=== PATIENT | female | born 1965 | race Caucasian/White ===

== ENCOUNTER 2016-05-20 14:44 | Emergency (ER) | payer OTHER ==
[~2016-05-20] VITALS: Ht 167.6 cm; Wt 74.0 kg
[~2016-05-20 14:44] MED LIST: CYM/30 PO; DIFL500T PO; Enbrel SQ; FERR325T62 PO; FLAX SEED OIL PO; LINA1CAP2 PO; LYR50 PO; NF656 TD; OMEP20TA14 PO; POTA99TA PO; PRED-441 PO; TRAM-10 PO
[2016-05-20 14:47] VITALS: TEMP 37; Ht 167.6 cm; Wt 74.0 kg
[2016-05-20] MEDS ORDERED: ETAN50IN2 SQ (15:06)
[2016-05-20] MEDS ORDERED: OXYCODONE HCL IR 5 MG TAB (IMMEDIATE RELEASE) PO STA (15:13)
--- NOTE | 2016-05-20 15:23 | EMERGENCY ROOM VISIT NOTE ---
History First contact with patient: 15:00 Chief Complaint: FALL Stated Complaint: FELL DOWN THE STAIRS History of Present Illness The patient is a 51 year old female who presents to the Emergency Room via private vehicle with complaints of "felt on the stairs". The patient states that Thursday night/Thursday morning at 1 AM she was at the top of a wooden flight of steps in her home, when she lost her footing and fell down the steps. She denies loss of consciousness, dizziness or lightheadedness. She states that yesterday she felt sore and went to the [facility] with a x-ray of her right clavicle found to be fractured, gave her a sling and she left. She notes pain yesterday but now she feels everything hurts. She is unsure if she struck her head. Her tetanus is up-to-date. There is a small cut over the dorsal aspect of the right middle finger. She notes that she has a headache, on the right side of her head, bilateral neck pain, bilateral clavicle pain, upper back pain between the shoulder blades and pain near the superior sternum at the location of the clavicles. She has abdominal pain, and blood in her stool or urine since the event. She also has pain in the left side of the hip. She rates the overall pain as a 9/10. Review of Systems A complete 6-point Review of Systems was discussed with the patient, with pertinent positives and negatives listed in the History of Present Illness. All remaining Review of Systems questions can be considered negative unless otherwise specified. Past Medical/Surgical History Medical Problems: (1) Animal bite (2) Animal bite (3) Multiple lacerations (4) Multiple orthopedic surgeries (5) Psoriatic arthritis (6) Rabies, need for prophylactic vaccination against (7) Rabies, need for prophylactic vaccination against (8) Rabies, need for prophylactic vaccination against Social History Smoking Status: Never Smoker Alcohol Use: occasionally Marital Status: single Occupation Status: employed Current/Historical Medications Scheduled Etanercept (Enbrel), 50 MG SQ WK Potassium (Potassium), 99 MG PO DAILY Pregabalin (Lyrica), 50 MG PO TID Scheduled PRN Lidocaine (Lidoderm Patch 5%), 1 PATCH TD HS PRN for PRN Omeprazole Magnesium (Prilosec Otc), 20 MG PO DAILY PRN for GI Upset Oxycodone/Acetaminophen 5MG/325MG (Percocet 5MG/325MG), 1 TAB PO Q4H PRN for Pain Prednisone (Cindy), 5 MG PO DAILY PRN for PRN Tramadol (Ultram), 50 MG PO 5XD PRN for Pain Miscellaneous Medications [Bl Flax Seed Oil], 1,000 MG PO Allergies Uncoded Allergies: RAO-2 INHIBITORS (Allergy, Unknown, "[facility]", 05/20/16) Physical Exam Vital Signs Date Time Temp Pulse Resp B/P Pulse Ox O2 Delivery O2 Flow Rate FiO2 05/20/16 18:05 66 20 136/80 98 05/20/16 14:47 37.0 67 18 165/102 97 Room Air Physical Exam VITAL SIGNS - Vital signs and nursing notes were reviewed. Patient is afebrile , she is hypertensive at 165 or 102, she is not tachycardic and saturating well on room air at 97%. GENERAL -51-year-old female appearing her stated age. Communicates well with provider and answers questions appropriately. SKIN - Gross examination of the entire body surface demonstrates a small lacerations to the dorsal aspect of the right third digit. These lacerations will not require repair. There is no ecchymosis noted over the body. HEAD - Normocephalic, Atraumatic. No Alvarado's Sign or Raccoon's Eyes. No depressed skull fractures palpable. EYES - PERRL with EOMI bilaterally. Without subconjunctival hemorrhage. Palpebral conjunctiva pink and moist with no injection. EARS - No deformities of external structures noted on gross examination bilaterally. No hemotympanum present. No tympanic perforation noted. Handle of malleus, umbo, cone of light, pars tensa/flaccid all easily visualized. NOSE - Midline and without cyanosis. No epistaxis or clear watery discharge noted. Septum midline without deviation. No septal hematoma noted. No overlying ecchymosis noted. MOUTH/OROPHARYNX - Without perioral cyanosis. Tongue midline with equal elevation of palate bilaterally. No blood noted in the oropharynx. No tonsillar hypertrophy, erythema, or exudates noted. No dental fractures noted. NECK - Cervical collar promptly in place. There is tenderness to palpation over the cervical spinous processes. No cervical paraspinal muscle tenderness noted. LUNGS - Chest wall symmetric without accessory muscle use, intercostals retractions, or central cyanosis. No flail chest or depressed fractures noted. No paradoxical chest wall movements noted. There is tenderness to palpation across the superior anterior and superior posterior chest [place] overlying the left paraspinous musculature. Normal vesicular breath sounds CTA B/L. No wheezes, rales, or rhonchi appreciated. CARDIAC - RRR with S1/S2. No murmur, rubs, or gallops appreciated. ABDOMEN - Abdominal contour and without pulsations or visible masses. BS normoactive all four quadrants. No rebound tenderness or guarding noted. Negative Bhanu's or Dahl Coulter's Signs. No tenderness, palpable masses, hepatosplenomegaly, or ascites noted. EXTREMITIES - No gross deformities noted of the extremities. No tenderness to palpation of the upper or lower extremities. There is slight tenderness to palpation overlying the left hip. Patient is able to axial load without difficulty. +3/5 radial and dorsalis pedis pulses palpated throughout. Full range of motion of the extremities actively. +5/5 strength noted in UE/LE bilaterally. NEUROLOGIC - Cranial nerves II through XII grossly intact. Sensory intact to light touch throughout. PSYCH - A&Ox3 and cooperates fully with examiner. Pt is very pleasant and interacts well with examiner. Medical Decision & Procedures ER Provider Diagnostic Interpretation: CERVICAL SPINE CT CT DOSE: 976.74 mGy.cm HISTORY: Fell, neck tenderness TECHNIQUE: Multiaxial CT images of the cervical spine were performed and reformatted in the sagittal and coronal plane without the use of contrast. COMPARISON: None. FINDINGS: No fractures. No subluxation. Prevertebral soft tissues and the C1-C2 interval are intact. No pneumothorax. Mild disc space narrowing at C5-C6. IMPRESSION: No fractures within the cervical spine. Electronically signed by: Ferdinand Marquez M.D. 05/20/2016 4:06 PM Dictated Date/Time: 05/20/2016 4:02 PM CHEST 2 VIEWS ROUTINE CLINICAL HISTORY: Bilateral clavicle pain and sternum pain pain COMPARISON STUDY: No previous studies for comparison. FINDINGS: The bones soft tissues and hemidiaphragms are normal. The cardiomediastinal silhouette is normal. The lungs are clear. The pulmonary vasculature is normal. IMPRESSION: Negative chest. Electronically signed by: Grupo Khan M.D. 05/20/2016 4:59 PM Dictated Date/Time: 05/20/2016 4:59 PM RIGHT CLAVICLE CLINICAL HISTORY: Bilateral clavicle pain and sternum pain Right COMPARISON STUDY: None. FINDINGS: No fractures within the clavicle. Tiny cortical lucency at the distal common and likely due to overlap of bony structures. No definite fractures identified. The AC joint is well aligned. IMPRESSION: No fractures within the right clavicle. Electronically signed by: Ferdinand Marquez M.D. 05/20/2016 5:07 PM Dictated Date/Time: 05/20/2016 5:04 PM LEFT CLAVICLE CLINICAL HISTORY: Bilateral clavicle pain and sternum pain trauma. Pain. COMPARISON: None. DISCUSSION: The bones and joint spaces appear intact. There is no evidence of fracture, dislocation or bony disease. There is no evidence for soft tissue swelling. IMPRESSION: Negative study. Electronically signed by: Grupo Khan M.D. 05/20/2016 5:07 PM Dictated Date/Time: 05/20/2016 5:[address] HEAD WITHOUT CONTRAST (CT) CLINICAL HISTORY: Headache status post head trauma. COMPARISON STUDY: No previous studies for comparison. TECHNIQUE: Axial CT of the brain is performed from the vertex to the skull base. IV contrast was not administered for this examination. CT DOSE: FINDINGS: No intra or extra-axial mass lesions are visualized. There is no CT evidence of acute cortical infarction. There is no evidence of midline shift. There is no acute hemorrhage. No calvarial fractures are visualized. There are minimal white matter hypodensities likely on a small vessel basis. There is no evidence of pathologic ventricular dilatation. There is no evidence of acute sinusitis IMPRESSION: No acute intracranial findings Electronically signed by: Leno Nails M.D. 05/20/2016 3:59 PM Dictated Date/Time: 05/20/2016 3:53 PM LEFT PELVIS/UNILATERAL HIP 2-3VIEWS CLINICAL HISTORY: Left hip pain s/p fall trauma. Pain. COMPARISON: None. DISCUSSION: The bones and joint spaces appear intact. There is no evidence of fracture, dislocation or bony disease. There is no evidence for soft tissue swelling. IMPRESSION: Negative study. Electronically signed by: Grupo Khan M.D. 05/20/2016 5:03 PM Dictated Date/Time: 05/20/2016 5:03 PM LUMBAR SPINE 5 VIEWS HISTORY: Pain Back pain COMPARISON: None. FINDINGS: There is no fracture. No subluxation. Considerable degenerative disc change from L3 through L5. No evidence for compression deformity. Posterior elements appear intact. IMPRESSION: Degenerative change. No acute bony abnormality Electronically signed by: Grupo Khan M.D. 05/20/2016 5:04 PM Dictated Date/Time: 05/20/2016 5:03 PM STERNUM MIN 2 VIEWS CLINICAL HISTORY: Bilateral clavicle pain and sternum pain trauma. Pain. COMPARISON STUDY: None FINDINGS: Negative study IMPRESSION: Negative study Electronically signed by: Grupo Khan M.D. 05/20/2016 5:06 PM Dictated Date/Time: 05/20/2016 5:05 PM THORACIC SPINE 3 VIEWS HISTORY: Pain Thoracic back pain COMPARISON: None. FINDINGS: There is no fracture. No subluxation. Moderate degenerative disc change throughout IMPRESSION: Moderate degenerative change. No acute bony abnormality. Electronically signed by: Grupo Khan M.D. 05/20/2016 5:04 PM Dictated Date/Time: 05/20/2016 5:04 PM Medications Administered Medications (Trade) Dose Ordered Sig/Oracio Route Start Time Stop Time Status Last Admin Dose Admin Oxycodone HCl (Roxicodone Immediate Rel Tab) 5 mg NOW STAT PO 05/20/16 15:13 05/20/16 15:18 DC 05/20/16 15:33 5 MG Medical Decision Patient was seen and evaluated as above. After obtaining a thorough history and physical examination the above workup was obtained. She was given 1 OxyIR for her pain. There was concern over her clavicle fracture, pneumothorax secondary to clavicle fracture, and C-spine fracture. C-collar was applied stat. Results of imaging as above. I agree with radiologist findings. No acute fractures. I did thoroughly discuss the findings with the patient, to include the incidental findings. She was instructed to follow-up with orthopedic group as soon as possible regarding her injuries, but I do not suspect any acute fracture. She may be experiencing a mild concussion. She is to follow-up with her family doctor or orthopedic regarding today's visit. I do believe she is stable for discharge, and she notes that the OxyIR helped tremendously with her pain. She does appear to be feeling much better and looks well. She was accompanied by her father. She will be given a short-term prescription for Percocet, she notes that she will cut these in half. She was informed to not take any Tylenol with these. She was educated upon worrisome symptoms which to return, had questions answered prior to discharge and was discharged home in good condition. I suspect the patient is likely experiencing contusion of many sites, but no fractures or emergent findings. In the evaluation did review this patient the following differential diagnoses were entertained: Acute intracranial abnormality, concussion, C-spine fracture, clavicle fracture, pneumothorax, lumbar fracture, hip fracture, among others. [place] Drug Monitoring Program Search Results: patient reviewed within database, no issues identified Impression Primary Impression: Fall Additional Impression: Contusion of multiple sites Departure Information Dispostion Home / Self-Care Condition GOOD Prescriptions Oxycodone/Acetaminophen 5MG/325MG (PERCOCET 5MG/325MG) Tab 1 TAB PO Q4H Y for Pain, #15 TAB For Initial Treatment Prov: Ovidio Rice PA-C 05/20/16 Referrals Fredi Day D.OZenon (PCP) Patient Instructions My [facility] Additional Instructions You have been treated in the Emergency Department for a Closed Head Injury.You have received pain medicine in the emergency department which impairs your ability to operate a vehicle. It is illegal for you to drive after receiving these medicines. CT Scan of your head/brain demonstrated no acute bleeding. Please discuss the other findings with your family doctor as we discussed. This does not completely rule out the risk for future damage to the brain. You have been prescribed Percocet to be used for pain control. This is a narcotic medication. You cannot drive or consume alcohol while on this medicine. This medicine should only be used for pain that cannot be controlled with [id number] pain medicines. For pain control, you can use the following [id number] medicines (if >12 yo): PLEASE DO NOT CONSUME TYLENOL WHILE ON THE PERCOCET, as it already has tylenol in it. You should relax in a quiet, dark place for the rest of the day. Avoid any possible triggers including: cigarette smoke, caffeine, nicotine, chocolate, wine, beer, loud noises or music, or bright lights. You should schedule a follow-up appointment in 2-3 days with your Primary Care Provider, and orthopedic group for further evaluation and management of your injuries. Return to the Emergency Department if your current symptoms worsen despite treatment course outlined above, or if you develop any of the following symptoms : intractable pain despite aforementioned treatment course, visual disturbances , loss of vision, unilateral weakness or facial drooping, slurring of speech, loss of coordination, or loss of consciousness. Please return to the emergency department with any new/concerning symptoms. Problem Qualifiers
--- NOTE | 2016-05-20 16:01 | DIAGNOSTIC IMAGING REPORT ---
CT HEAD WITHOUT CONTRAST (CT) CLINICAL HISTORY: Headache status post head trauma. COMPARISON STUDY: No previous studies for comparison. TECHNIQUE: Axial CT of the brain is performed from the vertex to the skull base. IV contrast was not administered for this examination. CT DOSE: FINDINGS: No intra or extra-axial mass lesions are visualized. There is no CT evidence of acute cortical infarction. There is no evidence of midline shift. There is no acute hemorrhage. No calvarial fractures are visualized. There are minimal white matter hypodensities likely on a small vessel basis. There is no evidence of pathologic ventricular dilatation. There is no evidence of acute sinusitis IMPRESSION: No acute intracranial findings Electronically signed by: Leno Nails M.D. 05/20/2016 3:59 PM Dictated Date/Time: 05/20/2016 3:53 PM
--- NOTE | 2016-05-20 16:08 | DIAGNOSTIC IMAGING REPORT ---
CERVICAL SPINE CT CT DOSE: 976.74 mGy.cm HISTORY: Fell, neck tenderness TECHNIQUE: Multiaxial CT images of the cervical spine were performed and reformatted in the sagittal and coronal plane without the use of contrast. COMPARISON: None. FINDINGS: No fractures. No subluxation. Prevertebral soft tissues and the C1-C2 interval are intact. No pneumothorax. Mild disc space narrowing at C5-C6. IMPRESSION: No fractures within the cervical spine. Electronically signed by: Ferdinand Marquez M.D. 05/20/2016 4:06 PM Dictated Date/Time: 05/20/2016 4:02 PM
--- NOTE | 2016-05-20 17:01 | DIAGNOSTIC IMAGING REPORT ---
CHEST 2 VIEWS ROUTINE CLINICAL HISTORY: Bilateral clavicle pain and sternum pain pain COMPARISON STUDY: No previous studies for comparison. FINDINGS: The bones soft tissues and hemidiaphragms are normal. The cardiomediastinal silhouette is normal. The lungs are clear. The pulmonary vasculature is normal. IMPRESSION: Negative chest. Electronically signed by: Grupo Khan M.D. 05/20/2016 4:59 PM Dictated Date/Time: 05/20/2016 4:59 PM
--- NOTE | 2016-05-20 17:04 | DIAGNOSTIC IMAGING REPORT ---
LEFT PELVIS/UNILATERAL HIP 2-3VIEWS CLINICAL HISTORY: Left hip pain s/p fall trauma. Pain. COMPARISON: None. DISCUSSION: The bones and joint spaces appear intact. There is no evidence of fracture, dislocation or bony disease. There is no evidence for soft tissue swelling. IMPRESSION: Negative study. Electronically signed by: Grupo Khan M.D. 05/20/2016 5:03 PM Dictated Date/Time: 05/20/2016 5:03 PM
--- NOTE | 2016-05-20 17:05 | DIAGNOSTIC IMAGING REPORT ---
LUMBAR SPINE 5 VIEWS HISTORY: Pain Back pain COMPARISON: None. FINDINGS: There is no fracture. No subluxation. Considerable degenerative disc change from L3 through L5. No evidence for compression deformity. Posterior elements appear intact. IMPRESSION: Degenerative change. No acute bony abnormality Electronically signed by: Grupo Khan M.D. 05/20/2016 5:04 PM Dictated Date/Time: 05/20/2016 5:03 PM
--- NOTE | 2016-05-20 17:06 | DIAGNOSTIC IMAGING REPORT ---
THORACIC SPINE 3 VIEWS HISTORY: Pain Thoracic back pain COMPARISON: None. FINDINGS: There is no fracture. No subluxation. Moderate degenerative disc change throughout IMPRESSION: Moderate degenerative change. No acute bony abnormality. Electronically signed by: Grupo Khan M.D. 05/20/2016 5:04 PM Dictated Date/Time: 05/20/2016 5:04 PM
--- NOTE | 2016-05-20 17:07 | DIAGNOSTIC IMAGING REPORT ---
STERNUM MIN 2 VIEWS CLINICAL HISTORY: Bilateral clavicle pain and sternum pain trauma. Pain. COMPARISON STUDY: None FINDINGS: Negative study IMPRESSION: Negative study Electronically signed by: Grupo Khan M.D. 05/20/2016 5:06 PM Dictated Date/Time: 05/20/2016 5:05 PM
--- NOTE | 2016-05-20 17:08 | DIAGNOSTIC IMAGING REPORT ---
LEFT CLAVICLE CLINICAL HISTORY: Bilateral clavicle pain and sternum pain trauma. Pain. COMPARISON: None. DISCUSSION: The bones and joint spaces appear intact. There is no evidence of fracture, dislocation or bony disease. There is no evidence for soft tissue swelling. IMPRESSION: Negative study. Electronically signed by: Grupo Khan M.D. 05/20/2016 5:07 PM Dictated Date/Time: 05/20/2016 5:07 PM
--- NOTE | 2016-05-20 17:08 | DIAGNOSTIC IMAGING REPORT ---
RIGHT CLAVICLE CLINICAL HISTORY: Bilateral clavicle pain and sternum pain Right COMPARISON STUDY: None. FINDINGS: No fractures within the clavicle. Tiny cortical lucency at the distal common and likely due to overlap of bony structures. No definite fractures identified. The AC joint is well aligned. IMPRESSION: No fractures within the right clavicle. Electronically signed by: Ferdinand Marquez M.D. 05/20/2016 5:07 PM Dictated Date/Time: 05/20/2016 5:04 PM
[2016-05-20] MEDS ORDERED: OXYC-57 PO (17:42)
[2016-05-20 18:05] VITALS: BP 136/80; PULSE 66; O2SAT 98
== END 2016-05-20 18:06 | disposition home or self-care (01) ==
LOC: C.EDB 14:46 → C.EDD 18:06
DX: T14.8 Other injury of unspecified body region (principal); W10.9XXA Fall (on) (from) unspecified stairs and steps, initial encounter

== ENCOUNTER → 2016-11-06 | Outpatient (CLI) | payer OTHER ==
[~2016-11-06] MED LIST changes: -CYM/30 PO; -DIFL500T PO; +ETAN50IN2 SQ; -Enbrel SQ; -FERR325T62 PO; -LINA1CAP2 PO; +OXYC-57 PO
== END | disposition home or self-care (01) ==
LOC: C.PAPS 13:50
PROVIDERS: ATTEND Physician Assistant
DX: Z12.4 Encounter for screening for malignant neoplasm of cervix (principal)

== ENCOUNTER 2020-05-11 13:10 | Inpatient (IN) ==
[2020-05-11] MEDS ORDERED: ONDANSETRON INJ 2 MG/ML 2 ML VIAL IV STA (14:58)
[2020-05-11] MEDS ORDERED: HYDROmorphone INJ 0.5 MG/0.5 ML SYR IV PRN (14:58)
[2020-05-11] MEDS ORDERED: Heparin IV Adult Wt-Based Standard WITH Bolus Protocol IV STA (15:03)
[2020-05-11] MEDS ORDERED: HEPARIN SOD (PORCINE) 1000 UNIT/ML ONE (15:13)
[2020-05-11 15:30] LABS: Basophils # (auto) 0.01 K/uL (0-0.2); Basophils % (auto) 0.2 %; Eosinophils # (auto) 0.19 K/uL (0-0.5); Hematocrit (blood only) 37.5 % (37-47); Hemoglobin 12.8 g/dL (12.0-16.0); Immature Granulocytes # (auto) 0.01 K/uL (0.00-0.02); Immature Granulocytes % (auto) 0.2 %; Lymphocytes # (auto) 2.31 K/uL (1.2-3.4); Mean Corpuscular Hemoglobin 31.1 pg (25-34); Mean Corpuscular Hgb Conc 34.1 g/dL (32-36); Mean Platelet Volume 9.6 fL (7.4-10.4); Monocytes # (auto) 0.41 K/uL (0.11-0.59); Monocytes % (auto) 6.4 %; Neutrophils # (auto) 3.48 K/uL (1.4-6.5); Neutrophils % (auto) 54.2 %; Platelet Count 210 K/uL (130-400); RDW Coefficient of Variation 12.3 % (11.5-14.5); Red Blood Count 4.12 M/uL (4.2-5.4); White Blood Count 6.41 K/uL (4.8-10.8)
[2020-05-11 15:39] LABS: Partial Thromboplastin Time 25.4 Seconds (21.0-31.0); Prothrombin Time 10.4 Seconds (9.0-12.0)
[2020-05-11 15:56] LABS: Albumin Level 3.5 gm/dl (3.4-5.0); Blood Urea Nitrogen 14 mg/dl (7-18); Calcium 9.2 mg/dl (8.5-10.1); Carbon Dioxide 26 mmol/L (21-32); Chloride 108 mmol/L (98-107); Est GFR (African American) 91.3; Est GFR (Non-African American) 78.8; Glucose 88 mg/dl (70-99); Potassium 3.9 mmol/L (3.5-5.1); Sodium 141 mmol/L (136-145)
[2020-05-11 16:00] LABS: Alanine Aminotransferase 43 U/L (12-78); Albumin Globulin Ratio 0.9 (0.9-2); Alkaline Phosphatase 61 U/L (45-117); Aspartate Aminotransferase 23 U/L (15-37); Bilirubin,Total 0.5 mg/dl (0.2-1); Globulin 3.8 gm/dl (2.5-4.0); Total Protein 7.3 gm/dl (6.4-8.2); Troponin I < 0.015 ng/ml (0-0.045)
--- NOTE | 2020-05-11 16:05 | History & Physical Report ---
Date of Service May 11, 2020 Assessment & Plan (1) Bilateral pulmonary embolism: Pt is 55 y/o F with PMH asthma, psoriatic arthritis, fibromyalgia, GERD presented to ER for SOB and abnormal CT Chest. Pt was diagnosed with COVID19 on 04/22/2020 with symptoms starting on 04/16. Increased SOB and Vitals stable - no tachycardia or tachypnea and 94% on RA CTA CHEST: Multiple lobar and segmental pulmonary emboli, greater within the right lung. Provoked PE - COVID19, OCP use Monitor on tele Heparin IV started in ER and will continue Discussion with pt about oral anticoagulation, would be interested in noac Supplemental oxygen as needed Obtain doppler BLE to R/O DVT (2) Pneumonia due to COVID-19 virus: COVID 19 Pneumonia symptom onset 04/16/2020. Positive test on 04/22/2020. Was treated with Zithromax and prednisone taper on 05/08/2020 No leukocytosis Will continue prednisone taper. 15mg daily x 3 days followed by 10mg daily x 3 days then 5mg daily x 3 days Will finish oral zithromax Albuterol inhaler prn Procalcitonin and CRP added Pt greater than 21 days from symptom onset. will not require isolation (3) Psoriatic arthritis: Follows with rheumatology Dr Ramos On Inflectra infusion last dose 04/09/2020 Continue Tramadol prn (4) Fibromyalgia: Continue Lyrica DVT Prophylaxis On Heparin Drip as has PE upon admission Full Code as per discussion with pt Follows with Dr Fredi Day for routine care Pt was seen and care coordinated with Dr Yadav. See addendum History of Present Illness Chief Complaint: SOB, Abnormal CT CHEST Primary Care Provider: Fredi Day, Pt is 55 y/o F with PMH asthma, psoriatic arthritis, fibromyalgia, GERD presented to ER for SOB and abnormal CT Chest. Pt was diagnosed with COVID19 on 04/22/2020 with symptoms starting on 04/16. Had cough, SOB, myalgias, congestion, VELEZ, nausea, fatigue. Developed chest tightness and lungs hurting". Unable to fully inhale. Symptoms have not improved. Seen at urgent care on 05/08/2020 had unremarkable CXR and was started on Zithromax, prednisone taper and was instructed to use albuterol inhaler. 05/09/20 CBC without leukocytosis and had elevated D-dimer. Today had CTA chest and was positive for multiple lobar and segmental pulmonary emboli and was referred to ER. Has chronic pain but feels more fatigued than baseline. Denies fever/chills, diaphoresis, N/V/D, VELEZ, dizziness, syncope, vision changes, neck pain, hemoptysis, palpitations, abdominal pain, paresthesias, extremity weakness, extremity edema or erythema, rashes, urinary symptoms. Allergies Allergy/AdvReac Type Severity Reaction Status Date / Time RAO-2 INHIBITORS Allergy Unknown "MENTALLY Uncoded 05/11/20 15:37 HE[facility]ALLENGE" Home Medications Medication Instructions Recorded Confirmed Type lamotrigine 25 mg tablet 75 mg PO AMHS 11/25/18 05/11/20 History multivitamin with iron 1 tab PO DAILY 11/25/18 05/11/20 History albuterol sulfate 2 puff INHALATION QID PRN 05/11/20 05/11/20 History azithromycin [Zithromax Z-Reagan] 250 mg PO .DAILY UD 05/11/20 05/11/20 History infliximab-dyyb [Inflectra] 400 mg IV DIRECTED 05/11/20 05/11/20 History lamotrigine 50 mg PO .QAFTERNOON 05/11/20 05/11/20 History levocetirizine 5 mg PO DAILY PRN 05/11/20 05/11/20 History norethindrone-ethin estradiol 1 tab PO DAILY 05/11/20 05/11/20 History [Nortrel 35 (28)] potassium 75 mg PO DAILY 05/11/20 05/11/20 History prednisone 10 mg PO .TAPER UD 05/11/20 05/11/20 History pregabalin [Lyrica] 150 mg PO TID 05/11/20 05/11/20 History propranolol 10 mg PO BID PRN 05/11/20 05/11/20 History tramadol 50 mg PO Q6H PRN 05/11/20 05/11/20 History Past Med/Surg History Medical History (Updated 05/11/20 @ 16:56 by Darnell Robison MD) Fibromyalgia GERD (gastroesophageal reflux disease) Ovarian cyst Psoriatic arthritis Vulvar dystrophy Surgical History H/O colonoscopy H/O foot surgery H/O oral surgery H/O wrist surgery History of colposcopy Family History (Updated 05/18/19 @ 13:22 by Jovana Crow MD, FACOG) Father Prostate cancer Skin cancer Denies family history of Ovarian cancer Breast cancer Colorectal cancer Social History (Updated 05/11/20 @ 16:08 by Shruthi Ferreira PA-C) Smoking Status: Never smoker Second Hand Exposure: No; Do You Dip or Chew Tobacco: No; Tobacco Cessation Education Requested by Patient: No Hx Alcohol Use: Yes Alcohol type: wine Alcohol Intake Frequency: 2-4 x/Month Hx Substance Use: No Preferred Language: Botswanan Communication Ability: Effective Wedding Florist Required: No Beliefs That Will Affect Care: None Current Living Situation: Spouse Other Information That Helps Us Care for You: No Feels Safe at Home: Yes Safety Concerns: Feels Safe At This Time Assistive Devices: None Review of Systems Review of Systems: All systems reviewed & are unremarkable except as noted in HPI & below Physical Exam Physical Exam: General: no distress, WDWN Head: normocephalic, atraumatic Eyes: PERRL, EOM's intact, conjunctiva non-injected, anicteric ENT: normal inspection external ears, nose, mucous membranes moist Neck: supple, trachea midline Lungs: diminished throughout, no respiratory distress, oxygen sats 94% on RA, no wheezing/rhonchi/rales noted CV: RRR, no murmur, no pretibial edema Abd: normal BS, soft, non-tender Ext: no cyanosis, no erythema or edema, no calf tenderness Neuro: A&O x 3, no focal deficits noted, normal affect Skin: warm, dry Results & Data Results & Data ([facility]) Vital Signs (Past 12 Hours) Vital Signs Temp Pulse Resp BP Pulse Ox 05/11/20 15:26 96 05/11/20 15:20 66 18 05/11/20 15:11 67 23 05/11/20 13:26 36.3 C L 70 18 133/86 94 Laboratory Results Short CBC 05/11/20 Range/Units 15:17 WBC 6.41 (4.8-10.8) K/uL Hgb 12.8 (12.0-16.0) g/dL Hct 37.5 (37-47) % Plt Count 210 (130-400) K/uL BMP 05/11/20 15:15 Sodium 141 Potassium 3.9 Chloride 108 H Carbon Dioxide 26 BUN 14 Creatinine 0.84 Glucose 88 Calcium 9.2 Cardiac Enzymes 05/11/20 Range/Units 15:15 Troponin I < 0.015 (0-0.045) ng/ml Liver Function 05/11/20 Range/Units 15:15 Total Bilirubin 0.5 (0.2-1) mg/dl AST 23 (15-37) U/L ALT 43 (12-78) U/L Alkaline Phosphatase 61 (45-117) U/L Albumin 3.5 (3.4-5.0) gm/dl Diagnostic Findings CTA CHEST: IMPRESSION: 1. Multiple lobar and segmental pulmonary emboli, greater within the right lung. This finding will be called/faxed to the ordering provider at time of dictation. 2. Multiple peripheral predominant groundglass opacities which favor a viral pneumonia such as Covid. Supervising Physician Co-Signing Physician Notes I have seen and examined the patient and have discussed the case with the provider above. I agree with the assessment and plan as stated with the following exceptions. 55 yo F with diagnosed COVID 19 infection on Apr 23, symptoms starting on Apr 16, presents with worsening SOB, cough and chest pain. She was found to have bilateral pulmonary emboli likey proviked not only from COVID-19 infection but also from OCP use which she takes sporadically. ROS reveals headaches, constipation, no diarrhea or abdominal pain, and she is anxious about being in the hospital. She reports the dilaudid she received helped her feel more calm in addition to helping her chest pain and her coughing. 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 She is doing well on the current prednisone taper and is particular about steroids. She is not currently hypoxic and was never hospitalized for COVID. She was treated with steroids as an outpatient. Physical exam reveals clear lungs with exam compromised by excessive coughing sparked by irritation from taking deep breaths. She has an otherwise normal physical exam. Plan to stop azithromycin as this is not needed and continue her prednisone taper per her request. Cont heparin drip for now with planned likely transition to Eliquis. Cont supportive care efforts. She is past 21 days of infection and is into an inflammatory phase of covid, making viral transmission less likely per current public health guidelines. Therefore, isolation is not needed at this time. Cont supportive care efforts. Leif, DO Active problems: recent Covid-19 infection, provoked bilateral pulmonary emboli.
[2020-05-11] MEDS: HEPARIN SODIUM/DEXTROSE 25,000 UNITS/500 ML BAG IV SCH (16:06)
--- NOTE | 2020-05-11 17:00 | Emergency Department Note ---
Impression & Plan Bilateral pulmonary embolism ED Provider Note INFORMANT: Patient ED PROVIDER(S): Darnell Robison MD CHIEF COMPLAINT: Abnormal outpatient CT scan PLAN: Disposition: Admitted Condition: Good Outpatient prescription management: none Referral: None MEDICAL DECISION MAKING: Patient presented to the ER because of an outpatient CT scan that revealed bilateral pulmonary emboli. She had stable vital signs. Blood work was obtained and was unremarkable. ECG did not show anything acute. Coags were normal. Troponin was negative. The patient was treated with IV Dilaudid and Zofran. She will need anticoagulation and further management in the hospital. [facility] Patient will be admitted by Dr. Yadav. Triage Nursing notes reviewed and agree them. Prior medical records reviewed regarding outpatient CT scan. Vital Signs: reviewed and remarkable for no significant abnormalities Differential diagnosis: Reactive airway disease, pneumonia, pneumothorax, COPD, CHF, infections, cardiac ischemia, pulmonary embolism, musculoskeletal, gastrointestinal, as well as other pathologies. Diagnostics interpreted by me: ECG: Twelve-lead ECG reveals a sinus rhythm with PVCs at [address] elevation or depression. No PACs or PVCs. Cardiac Monitoring:Cardiac monitoring ordered by me: The patient was placed on continuous cardiac monitoring and observed. It revealed a normal sinus rhythm at 75 beats per minute without ectopy or evidence of dysrhythmia. Imaging studies: CT scan of the chest revealed bilateral pulmonary emboli. I refer you to the EMR for further details. HPI: The patient is a 55 year old female who presents to the Emergency Room with complaints of an abnormal outpatient CT scan. This started today and is due to finding bilateral pulmonary emboli. The patient also notes the following associated symptoms, cough, chest pain. The patient has been using cough medication for relieving factors. Current pain is rated as 8/10. Patient was symptomatic for Covid on April 16. She tested + April 23. She felt like she was getting better and then over the last week she developed more of a cough and chest pain. Outpatient work-up included a CT scan and it showed bilateral pulmonary emboli. Pt denies LOC, headache, fevers, chills, diaphoresis, visual changes, neck pain, nausea, vomiting, abdominal pain, back pain, melena, hematochezia, urinary symptoms, numbness, weakness, lymphadenopathy, rash, or other complaints. ROS: See above HPI for pertinent positives & negatives. A total of 10 systems reviewed and were otherwise negative. PAST MEDICAL HISTORY:See Below , COVID-19 PAST SURGICAL HISTORY:See Below, FAMILY HISTORY:See Below SOCIAL HISTORY:See Below, non-smoker HOME MEDICATIONS:See Below ALLERGIES:See Below VITALS:See Below PHYSICAL EXAMINATION: GENERAL: Awake, alert, uncomfortable-appearing, in no distress HENT: Normocephalic, atraumatic. Oropharynx unremarkable. EYES: Normal conjunctiva. Sclera non-icteric. NECK: Inspection normal. Non-tender. Supple. No nuchal rigidity. FROM. No masses. RESPIRATORY: Clear to auscultation. No wheezes. No rales. Normal respiratory effort. CARDIAC: Normal rate. Normal rhythm. No murmurs. No rubs. Extremities warm and well perfused. Pulses equal. No JVD. GI: Soft, non-distended. No tenderness to palpation. No rebound or guarding. No masses. RECTAL: Deferred. MUSCULOSKELETAL: Atraumatic. Chest examination reveals no tenderness. The back is symmetrical on inspection without obvious abnormality. There is no CVA tenderness to palpation. No joint edema. LOWER EXTREMITIES: Calves are equal size bilaterally and non-tender. No edema. No discoloration. NEURO: Normal sensorium. No sensory or motor deficits noted. SKIN: No rash or jaundice noted. Uncomfortable Darnell Robison MD Past Med/Surg History Medical History (Updated 05/11/20 @ 16:56 by Darnell Robison MD) Fibromyalgia GERD (gastroesophageal reflux disease) Ovarian cyst Psoriatic arthritis Vulvar dystrophy Surgical History H/O colonoscopy H/O foot surgery H/O oral surgery H/O wrist surgery History of colposcopy Family History (Updated 05/18/19 @ 13:22 by Jovana Crow MD, FACOG) Father Prostate cancer Skin cancer Denies family history of Ovarian cancer Breast cancer Colorectal cancer Social History (Updated 05/11/20 @ 16:08 by Shruthi Ferreira PA-C) Smoking Status: Never smoker Hx Alcohol Use: Yes Alcohol Intake Frequency: 2-4 x/Month Hx Substance Use: No Feels Safe at Home: Yes Allergies Allergies Allergy/AdvReac Type Severity Reaction Status Date / Time RAO-2 INHIBITORS Allergy Unknown "MENTALLY Uncoded 05/11/20 15:37 [facility]ALTH CHALLENGE" Home Meds Home Medications Medication Instructions Recorded Confirmed lamotrigine 25 mg tablet 75 mg PO AMHS 11/25/18 05/11/20 multivitamin with iron 1 tab PO DAILY 11/25/18 05/11/20 albuterol sulfate 2 puff INHALATION QID PRN 05/11/20 05/11/20 azithromycin [Zithromax Z-Reagan] 250 mg PO .DAILY UD 05/11/20 05/11/20 infliximab-dyyb [Inflectra] 400 mg IV DIRECTED 05/11/20 05/11/20 lamotrigine 50 mg PO .QAFTERNOON 05/11/20 05/11/20 levocetirizine 5 mg PO DAILY PRN 05/11/20 05/11/20 norethindrone-ethin estradiol 1 tab PO DAILY 05/11/20 05/11/20 [Nortrel (28)] potassium 75 mg PO DAILY 05/11/20 05/11/20 prednisone 10 mg PO .TAPER UD 05/11/20 05/11/20 pregabalin [Lyrica] 150 mg PO TID 05/11/20 05/11/20 propranolol 10 mg PO BID PRN 05/11/20 05/11/20 tramadol 50 mg PO Q6H PRN 05/11/20 05/11/20 Results & Data (ED) Vital Signs Vital Signs - 24 hr 05/11/20 13:26 05/11/20 15:11 05/11/20 15:20 Temperature 36.3 C L Temperature Source Temporal Artery Scan Pulse Rate 70 67 66 Pulse Rate from SpO2 Sensor Respiratory Rate 18 23 18 Respiratory Effort / Characteristics Non-Labored Spontaneous Respiratory Depth Normal Blood Pressure 133/86 Blood Pressure Mean 101 Pulse Oximetry 94 Oxygen Delivery Method Room Air Sepsis Recent Fever Within 48 Hours No Sepsis New/Unexplained Change in Mental Status No Sepsis Action Taken by Nursing No Action Required 05/11/20 15:26 05/11/20 15:30 05/11/20 15:40 Temperature Temperature Source Pulse Rate 64 70 64 Pulse Rate from SpO2 Sensor 67 68 64 Respiratory Rate 18 19 15 Respiratory Effort / Characteristics Respiratory Depth Blood Pressure 124/83 137/85 Blood Pressure Mean 96 102 Pulse Oximetry 95 95 95 Oxygen Delivery Method Room Air Sepsis Recent Fever Within 48 Hours Sepsis New/Unexplained Change in Mental Status Sepsis Action Taken by Nursing 05/11/20 16:00 05/11/20 16:20 05/11/20 16:30 Temperature Temperature Source Pulse Rate 70 65 62 Pulse Rate from SpO2 Sensor 63 62 56 L Respiratory Rate 18 19 15 Respiratory Effort / Characteristics Respiratory Depth Blood Pressure 104/90 126/81 Blood Pressure Mean 94 96 Pulse Oximetry 92 93 93 Oxygen Delivery Method Sepsis Recent Fever Within 48 Hours Sepsis New/Unexplained Change in Mental Status Sepsis Action Taken by Nursing 05/11/20 16:40 Temperature Temperature Source Pulse Rate 75 Pulse Rate from SpO2 Sensor 65 Respiratory Rate 17 Respiratory Effort / Characteristics Respiratory Depth Blood Pressure Blood Pressure Mean Pulse Oximetry 91 Oxygen Delivery Method Sepsis Recent Fever Within 48 Hours Sepsis New/Unexplained Change in Mental Status Sepsis Action Taken by Nursing Laboratory Data Result diagrams: 05/11/20 15:17 05/11/20 15:15 Lab Results 05/11/20 05/11/20 05/11/20 Range/Units 15:15 15:17 15:17 WBC 6.41 (4.8-10.8) K/uL RBC 4.12 L (4.2-5.4) M/uL Hgb 12.8 (12.0-16.0) g/dL Hct 37.5 (37-47) % MCV 91.0 (80-100) fL MCH 31.1 (25-34) pg MCHC 34.1 (32-36) g/dL RDW Std Deviation 41.0 (36.4-46.3) fL RDW Coeff of Jonas 12.3 (11.5-14.5) % Plt Count 210 (130-400) K/uL MPV 9.6 (7.4-10.4) fL Immature Gran % (Auto) 0.2 % Neut % (Auto) 54.2 % Lymph % (Auto) 36.0 % [place] % (Auto) 6.4 % Eos % (Auto) 3.0 % Baso % (Auto) 0.2 % Neut # (Auto) 3.48 (1.4-6.5) K/uL Lymph # (Auto) 2.31 (1.2-3.4) K/uL [place] # (Auto) 0.41 (0.11-0.59) K/uL Eos # (Auto) 0.19 (0-0.5) K/uL Baso # (Auto) 0.01 (0-0.2) K/uL Immature Gran # (Auto) 0.01 (0.00-0.02) K/uL PT 10.4 (9.0-12.0) Seconds INR 1.0 (0.9-1.1) APTT 25.4 (21.0-31.0) Seconds PTT Ratio 1.0 Sodium 141 (136-145) mmol/L Potassium 3.9 (3.5-5.1) mmol/L Chloride 108 H (98-107) mmol/L Carbon Dioxide 26 (21-32) mmol/L Anion Gap 8.0 (3-11) BUN 14 (7-18) mg/dl Creatinine 0.84 (0.6-1.2) mg/dl Est Cr Clr Drug Dosing Not Reportable Est GFR ( Amer) 91.3 Est GFR (Non-Af Amer) 78.8 BUN/Creatinine Ratio 17.0 (10-20) Glucose 88 (70-99) mg/dl Calcium 9.2 (8.5-10.1) mg/dl Total Bilirubin 0.5 (0.2-1) mg/dl AST 23 (15-37) U/L ALT 43 (12-78) U/L Alkaline Phosphatase 61 (45-117) U/L Troponin I < 0.015 (0-0.045) ng/ml Total Protein 7.3 (6.4-8.2) gm/dl Albumin 3.5 (3.4-5.0) gm/dl Globulin 3.8 (2.5-4.0) gm/dl Albumin/Globulin Ratio 0.9 (0.9-2) Administered Medications Hydromorphone HCl (Hydromorphone Inj 0.5 Mg/0.5 Ml Syr) 0.5 mg IV Q15M PRN PRN Reason: Pain Stop: 05/25/20 14:57 Last Admin: 05/11/20 15:32 Dose: 0.5 mg Documented by: [id number] Heparin Sodium/Dextrose (Heparin Sodium/Dextrose) 25,000 units in 500 mls @ 0.02 mls/hr IV .Q24H [facility]; Protocol Stop: 06/10/20 15:14 Last Admin: 05/11/20 16:06 Dose: 1,000 units/hr, 20 mls/hr Documented by: [id number] Cosigned by: [id number] Discontinued Medications Heparin Sodium (Porcine) (Heparin Sod (Porcine) 1000 Unit/Ml 10 Ml Vial) Confirm Administered Dose 10,000 units .ROUTE .STK-MED ONE Stop: 05/11/20 15:14 Last Admin: 05/11/20 16:07 Dose: 4,000 units Documented by: [id number] Cosigned by: [id number] Heparin Sodium/Dextrose (Heparin Iv Standard With Bolus) 1 ea IV NOW STA; Protocol Stop: 05/11/20 15:04 Last Admin: 05/11/20 16:07 Dose: 1 ea Documented by: [id number] Ondansetron HCl (Ondansetron Inj 2 Mg/Ml 2 Ml Vial) 4 mg IV NOW STA Stop: 05/11/20 14:59 Last Admin: 05/11/20 15:32 Dose: 4 mg Documented by: [id number] Discharge Plan Visit Data Chief Complaint: Abnormal Labs/Diagnostic Testing Stated Complaint: JUST HAD CT FOR PE AND ITS POSITIVE THINK +COVID ED Provider: Darnell Robison Discharge Problem: Bilateral pulmonary embolism Forms Stand Alone Forms: My [facility] Prescriptions Prescriptions: No Action lamotrigine [Lamictal] 25 mg tablet 75 mg PO AMHS RF: 0 multivitamin with iron [Daily Multiple Vitamins/Iron] tablet 1 tab PO DAILY RF: 0 prednisone 10 mg tablet 10 mg PO .TAPER UD RF: 0 tramadol 50 mg tablet 50 mg PO Q6H PRN (Reason: Pain) RF: 0 lamotrigine 25 mg tablet 50 mg PO .QAFTERNOON RF: 0 propranolol 10 mg Tablet 10 mg PO BID PRN (Reason: PERFORMANCE ANXIETY) RF: 0 pregabalin [Lyrica] 150 mg capsule 150 mg PO TID RF: 0 Nortrel 1/35 (28) 1-35 mg-mcg tablet 1 tab PO DAILY RF: 0 azithromycin [Zithromax Z-Reagan] 250 mg tablet 250 mg PO .DAILY UD RF: 0 levocetirizine 5 mg tablet 5 mg PO DAILY PRN (Reason: ALLERGIES) RF: 0 albuterol sulfate 90 mcg/actuation Hfa Aerosol Inhaler 2 puff INHALATION QID PRN (Reason: Shortness Of Breath Or Wheezing) RF: 0 Inflectra 100 mg Recon Soln 400 mg IV DIRECTED RF: 0 potassium 75 mg Tablet 75 mg PO DAILY RF: 0
[2020-05-11] MEDS ORDERED: predniSONE 10 MG TABLET PO SCH (18:02)
--- NOTE | 2020-05-11 18:18 | Electrocardiogram Report ---
Test Reason : Blood Pressure : / mmHG Vent. Rate : 067 BPM Atrial Rate : 067 BPM P-R Int : 164 ms QRS Dur : 094 ms QT Int : 406 ms P-R-T Axes : 013 -08 001 degrees QTc Int : 429 ms Sinus rhythm with occasional Premature ventricular complexes Minimal voltage criteria for LVH, may be normal variant Borderline ECG When compared with ECG of 18-JUN-1998 16:18, Premature ventricular complexes are now Present Nonspecific T wave abnormality now evident in Anterior leads Confirmed by Chris Bernard ([id number]) on 05/11/2020 6:18:21 PM Referred By: REFERRED SELF Confirmed By:Chris Bernard
[2020-05-11] MEDS ORDERED: ONDANSETRON INJ 2 MG/ML 2 ML VIAL IV PRN (18:20)
[2020-05-11] MEDS ORDERED: ALBUTEROL HFA 8 GM INHALER INH PRN (18:20)
[2020-05-11] MEDS ORDERED: ACETAMINOPHEN 325 MG TAB PO PRN (18:20)
[2020-05-11] MEDS ORDERED: POLYETHYLENE (MIRALAX) 17 GM PACK PO PRN (18:20)
[2020-05-11 18:53] LABS: C Reactive Protein 2.02 mg/dl (0-0.29)
[2020-05-11] MEDS: predniSONE 10 MG TABLET PO SCH (19:55)
[2020-05-11] MEDS: HYDROmorphone INJ 0.5 MG/0.5 ML SYR IV PRN ×2 (19:56→20:06)
[2020-05-11] MEDS: lamoTRIgine 25 MG TAB PO SCH ×2 (19:56→22:27)
[2020-05-11] MEDS: traMADol HCL 50 MG TABLET PO PRN (22:25)
[2020-05-11] MEDS: PREGABALIN 150 MG CAP PO SCH (22:25)
[2020-05-11 22:51] LABS: Partial Thromboplastin Ratio 1.2; Partial Thromboplastin Time 31.9 Seconds (21.0-31.0)
[2020-05-12 06:05] LABS: Hemoglobin 12.8 g/dL (12.0-16.0); Mean Corpuscular Hgb Conc 33.7 g/dL (32-36); Mean Platelet Volume 9.6 fL (7.4-10.4); Platelet Count 223 K/uL (130-400); RDW Coefficient of Variation 12.5 % (11.5-14.5); RDW Standard Deviation 42.4 fL (36.4-46.3); Red Blood Count 4.13 M/uL (4.2-5.4); White Blood Count 5.36 K/uL (4.8-10.8)
[2020-05-12 06:31] LABS: Partial Thromboplastin Ratio 1.8
[2020-05-12 06:46] LABS: Partial Thromboplastin Time 47.4 Seconds (21.0-31.0)
[2020-05-12 07:05] LABS: BUN Creatinine Ratio 15.7 (10-20); C Reactive Protein 2.06 mg/dl (0-0.29); Calcium 9.3 mg/dl (8.5-10.1); Creatinine Clr Calc Pharmacy 68.4 ml/min; Est GFR (African American) 86.3; Est GFR (Non-African American) 74.5; Potassium 4.6 mmol/L (3.5-5.1)
--- NOTE | 2020-05-12 07:15 | CT Scan Report ---
CT head/brain wo con CLINICAL HISTORY: Severe headache COMPARISON STUDY: 05/20/2016 TECHNIQUE: Axial CT of the brain is performed from the vertex to the skull base. IV contrast was not administered for this examination. A dose lowering technique was utilized adhering to the principles of ALARA. CT DOSE: 537.48 mGy.cm FINDINGS: No intra or extra-axial mass lesions are visualized. There is no CT evidence of acute cortical infarc tion. There is no evidence of midline shift. There is no acute hemorrhage. No calvarial fractures ar e visualized. There is no evidence of pathologic ventricular dilatation. There is no evidence of acute sinusitis IMPRESSION: No acute intracranial findings ACT 112: Negative or not required by law. Electronically signed by: Leno Nails M.D. 05/12/2020 7:13 AM
--- NOTE | 2020-05-12 07:16 | Ultrasound Report ---
ULTRASOUND BILATERAL LOWER EXTREMITY VENOUS CLINICAL HISTORY: Covid. COMPARISON STUDY: No priors. TECHNIQUE: Real-time, grayscale, and color Doppler sonography of the deep veins of the right and left lower extremity was performed from the inguinal crease to the calf. Compression and augmentation wer e utilized. FINDINGS: There is no sonographic evidence of deep venous thrombosis identified in the right or left lower extremity. The common femoral, superficial femoral, and popliteal veins are patent and normally compressible bilaterally. The greater saphenous vein and the profunda femoris vein at the junction w ith the common femoral vein are clear in both legs. The visualized calf veins are patent bilaterally. IMPRESSION: There is no sonographic evidence of deep venous thrombosis identified in the right or lef t lower extremity. ACT 112: Negative or not required by law. Electronically signed by: Norm Sheth M.D. 05/12/2020 7:15 AM
[2020-05-12] MEDS: traMADol HCL 50 MG TABLET PO PRN (08:28)
[2020-05-12] MEDS: predniSONE 10 MG TABLET PO SCH (08:28)
[2020-05-12] MEDS: PREGABALIN 150 MG CAP PO SCH ×3 (08:28→20:36)
[2020-05-12] MEDS: CEROVITE ADV FORMULA TAB PO SCH (08:29)
[2020-05-12] MEDS: lamoTRIgine 25 MG TAB PO SCH ×3 (08:29→20:36)
[2020-05-12] MEDS ORDERED: ALBUTEROL 0.5% NEB SOLN 2.5 MG/0.5 ML VIAL NEB STA (10:31)
--- NOTE | 2020-05-12 10:39 | Hospitalist Progress Note ---
Date of Service May 12, 2020 Assessment & Plan (1) Bilateral pulmonary embolism: provoked by COVID and OCP use. OCP stopped. Cont heparin drip for now for anti-inflammatory effect. Plan for transition to Eliquis. No evidence of DVT. Cont supportive care. (2) Pneumonia due to COVID-19 virus: COVID 19 Pneumonia diagnosed 04/22/20. Normal procalcitonin, no indication for antibiotic therapy at this point. Azithromycin started outpatient was stopped. Cont prednisone taper as patient is a psoriatic arthritis patient with a history of steorid use and how they affect her. She prefers not to drop her dose too quickly. 5mg daily at this time. CRP 2 and she reports no baseline elevation from her arthritis that is known. Will review her outpatient records regarding this. (3) Psoriatic arthritis: Follows with rheumatology Dr Ramos [facility] [place]. On Inflectra infusion last dose 04/09/2020. Due for Remicaide infusion on Thursday. If she is still inpatient, we will obtain the dose from her physician and infuse her. (4) Fibromyalgia: Continue Lyrica (5) Perimenopause: discontinued OCPs in setting of PE (6) Chronic constipation: Sennakot scheduled per her request with increase in narcotic therapy for pain control (7) DVT prophylaxis: Heparin drip with planned transition to heparin in 24-48 hours Full Code Dispo-to home when medically stable and symptoms improve. Lena Yadav DO [facility] Hospitalist Admission and Anticipated Discharge Date Admission Date: May 11, 2020 Subjective 55 yo F with recent COVID infection and worsening dyspnea with chest pain, found to have bilateral PE patient reports chest pain L>R is persistent but not worse than yesterday +constipation +headache persists, she is cutting down on steroids we discussed changing pain regimen cough is still present and persistent, dry afebrile tolerating PO Review of Systems Review of Systems: All systems reviewed & are unremarkable except as noted in Subjective Physical Exam 2 Physical Exam: CONSTITUTIONAL: WNWD, vitals as above, generally well- appearing EYES: normal conjunctivae, no scleral icterus ENT: external ear and nose normal, MMM RESPIRATORY: clear to auscultation bilaterally, no crackles, rales or wheezes, normal respiratory effort. Frequent coughing and irritation throughout the exam; appears to be triggered by taking deep breaths. CARDIOVASCULAR: regular rate and rhythm, S1 and 2 heard without murmurs, gallops or rubs, no JVD, no peripheral edema GASTROINTESTINAL: normal bowel sounds, soft, nontender, no hepatomegaly, no guarding MUSCULOSKELETAL: strength 5/5 throughout, head is normocephalic and atraumatic SKIN: warm and dry NEUROLOGIC: CN 2-12 grossly intact, no sensory deficit, normal cognition, normal speech, no gross focal deficits. PSYCHIATRIC: alert cooperative and oriented to person, place and time. Results & Data Results & Data ([facility]) Vital Signs (Past 12 Hours) Vital Signs Temp Pulse Pulse Resp BP Pulse Ox 05/12/20 08:01 36.8 C 63 20 114/77 94 05/12/20 04:22 36.8 C 58 L 16 111/75 93 05/12/20 00:17 36.7 C 56 L 18 134/82 96 05/12/20 00:00 76 Laboratory Results Short CBC 05/11/20 05/12/20 Range/Units 15:17 05:33 WBC 6.41 5.36 (4.8-10.8) K/uL Hgb 12.8 12.8 (12.0-16.0) g/dL Hct 37.5 38.0 (37-47) % Plt Count 210 223 (130-400) K/uL BMP 05/11/20 05/12/20 15:15 05:33 Sodium 141 140 Potassium 3.9 4.6 D Chloride 108 H 106 Carbon Dioxide 26 28 BUN 14 14 Creatinine 0.84 0.88 Glucose 88 90 Calcium 9.2 9.3 Cardiac Enzymes 05/11/20 Range/Units 15:15 Troponin I < 0.015 (0-0.045) ng/ml Liver Function 05/11/20 Range/Units 15:15 Total Bilirubin 0.5 (0.2-1) mg/dl AST 23 (15-37) U/L ALT 43 (12-78) U/L Alkaline Phosphatase 61 (45-117) U/L Albumin 3.5 (3.4-5.0) gm/dl Medications Administered Current Inpatient Medications Acetaminophen (Acetaminophen 325 Mg Tab) 650 mg PO Q4H PRN PRN Reason: Pain or Fever Stop: 06/10/20 18:19 Albuterol (Albuterol Hfa 8 Gm Inhaler) 2 puffs INH QID PRN PRN Reason: Shortness Of Breath Or Wheezin Stop: 06/10/20 18:19 Albuterol (Albuterol 0.5% Neb Soln 2.5 Mg/0.5 Ml Vial) 2.5 mg NEB Q6R [facility] Stop: 06/11/20 12:59 Guaifenesin/Codeine Phosphate (Guaifenesin/Codeine 200mg/20mg 10ml Udc) 10 ml PO Q6H PRN PRN Reason: Cough Stop: 06/10/20 19:51 Last Admin: 05/12/20 08:28 Dose: 10 ml Documented by: Hydromorphone HCl (Hydromorphone Inj 0.5 Mg/0.5 Ml Syr) 0.5 mg IV Q6H PRN PRN Reason: Moderate Pain Stop: 05/25/20 19:19 Last Admin: 05/11/20 20:06 Dose: 0.5 mg Documented by: Heparin Sodium/Dextrose (Heparin Sodium/Dextrose) 25,000 units in 500 mls @ 22 mls/hr IV .[id number] [facility]; Protocol Stop: 06/10/20 15:14 Last Titration: 05/12/20 06:46 Dose: 1,100 units/hr, 22 mls/hr Documented by: Lamotrigine (Lamotrigine 25 Mg Tab) 75 mg PO BID [facility] Stop: 06/10/20 20:59 Last Admin: 05/12/20 08:29 Dose: 75 mg Documented by: Lamotrigine (Lamotrigine 25 Mg Tab) 50 mg PO DAILY@1400 [facility] Stop: 06/10/20 18:19 Last Admin: 05/11/20 19:56 Dose: 50 mg Documented by: Multivitamins/Minerals (Cerovite Adv Formula Tab) 1 tab PO DAILY [facility] Stop: 06/11/20 08:59 Last Admin: 05/12/20 08:29 Dose: 1 tab Documented by: Ondansetron HCl (Ondansetron Inj 2 Mg/Ml 2 Ml Vial) 4 mg IV Q6H PRN PRN Reason: Nausea Stop: 06/10/20 18:19 Oxycodone/Acetaminophen (Oxycodone/Acetaminophen 5mg/325mg Tab) 1 - 2 tab PO Q4H PRN PRN Reason: Pain Stop: 05/26/20 10:30 Polyethylene Glycol (Polyethylene (Miralax) 17 Gm Pack) 17 gm PO DAILY PRN PRN Reason: Constipation Stop: 06/10/20 18:19 Prednisone (Prednisone 5 Mg Tab) 5 mg PO DAILY [facility] Stop: 06/12/20 08:59 Pregabalin (Pregabalin 150 Mg Cap) 150 mg PO TID [facility] Stop: 06/10/20 20:59 Last Admin: 05/12/20 08:28 Dose: 150 mg Documented by: Sennosides (Senna 8.6 Mg Tab) 8.6 mg PO TID [facility] Stop: 06/11/20 13:59 Tramadol HCl (Tramadol Hcl 50 Mg Tablet) 50 mg PO Q6H PRN PRN Reason: Pain Stop: 06/10/20 18:19 Last Admin: 05/12/20 08:28 Dose: 50 mg Documented by:
--- NOTE | 2020-05-12 10:51 | XRay Report ---
SINGLE VIEW CHEST CLINICAL HISTORY: Atypical chest pain. Pulmonary embolus FINDINGS: An AP, portable, upright chest radiograph is compared to study dated 05/20/2016 and correlat ed with chest CT dated 05/11/2020. The cardiomediastinal silhouette is unremarkable. Bibasilar opaciti es likely represent atelectasis. No large pleural effusion or pneumothorax is seen. The bony thorax i s grossly intact. IMPRESSION: Dependent bibasilar airspace opacities likely represent atelectasis. Clinical correlation will be required. ACT 112: Negative or not required by law. Electronically signed by: Norm Sheth M.D. 05/12/2020 10:50 AM
[2020-05-12] MEDS ORDERED: ALBUTEROL 0.5% NEB SOLN 2.5 MG/0.5 ML VIAL NEB SCH (13:00)
[2020-05-12] MEDS: oxyCODONE/ACETAMINOPHEN 5mg/325mg TAB PO PRN ×2 (13:47→20:49)
[2020-05-12] MEDS: HEPARIN SODIUM/DEXTROSE 25,000 UNITS/500 ML BAG IV SCH (16:29)
[2020-05-12] MEDS: ALBUTEROL 0.083% NEBU SOLN 3 ML VIAL NEB SCH ×2 (16:37→18:50)
[2020-05-12] MEDS: SENNA 8.6 MG TAB PO SCH ×2 (16:37→20:36)
[2020-05-12] MEDS ORDERED: AZITHROMYCIN 250 MG TAB PO SCH (18:06)
[2020-05-13] MEDS: ALBUTEROL 0.083% NEBU SOLN 3 ML VIAL NEB SCH ×3 (00:01→13:48)
[2020-05-13] MEDS: oxyCODONE/ACETAMINOPHEN 5mg/325mg TAB PO PRN ×3 (04:54→20:13)
[2020-05-13 07:08] LABS: Partial Thromboplastin Time 52.1 Seconds (21.0-31.0)
[2020-05-13] MEDS: lamoTRIgine 25 MG TAB PO SCH ×3 (08:05→20:34)
[2020-05-13] MEDS: predniSONE 5 MG TAB PO SCH (08:05)
[2020-05-13] MEDS: SENNA 8.6 MG TAB PO SCH ×3 (08:05→20:35)
[2020-05-13] MEDS: PREGABALIN 150 MG CAP PO SCH ×3 (08:05→20:13)
[2020-05-13] MEDS: CEROVITE ADV FORMULA TAB PO SCH (08:06)
[2020-05-13] MEDS: HYDROmorphone INJ 0.5 MG/0.5 ML SYR IV PRN ×3 (09:06→22:16)
[2020-05-13] MEDS ORDERED: ALBUTEROL 0.083% NEBU SOLN 3 ML VIAL NEB PRN (14:26)
[2020-05-13] MEDS ORDERED: MAGNESIUM CITRATE 296 ML/BTL PO ONE (14:26)
[2020-05-13] MEDS: HEPARIN SODIUM/DEXTROSE 25,000 UNITS/500 ML BAG IV SCH (14:58)
[2020-05-13] MEDS ORDERED: MAGNESIUM CITRATE 296 ML/BTL PO PRN (16:13)
--- NOTE | 2020-05-13 19:14 | Hospitalist Progress Note ---
Date of Service May 13, 2020 Assessment & Plan (1) Bilateral pulmonary embolism: provoked by COVID and OCP use. OCP stopped. Cont heparin drip for now for anti-inflammatory effect. Plan for transition to Eliquis when pain is better controlled and she is closer to discharge. No evidence of DVT. Cont supportive care. Pulmonary consulted out of concern for developing pulmonary infarct and continued persistent severe pain and dyspnea. (2) Pneumonia due to COVID-19 virus: COVID 19 Pneumonia diagnosed 04/22/20. Normal procalcitonin, no indication for antibiotic therapy at this point. Azithromycin started outpatient was stopped. Cont prednisone taper as patient is a psoriatic arthritis patient with a history of steroid use and how they affect her. She prefers not to drop her dose too quickly. 5mg daily at this time. CRP 2 and she reports no baseline elevation from her arthritis that is known. (3) Psoriatic arthritis: Follows with rheumatology Dr Ramos [facility] [place] [place]. On Inflectra infusion last dose 04/09/2020. Due for infusion on Thursday, however, this is not on formulary and cannot be accommodated. She is aware and will reschedule with her outpatient clinic. (4) Fibromyalgia: Continue Lyrica and Lamictal. Of note Lamictal is a medication that was started when she was a medical patient in [facility] and was continued upon her transition of care to the [facility]. (5) Perimenopause: discontinued OCPs in setting of PE (6) Chronic constipation: Sennakot scheduled per her request with increase in narcotic therapy for pain control (7) DVT prophylaxis: Heparin drip with planned transition to Eliquis closer to discharge. Full Code Dispo-to home when medically stable and symptoms improve, likely in the next 1 to 2 days. Lena Yadav DO [facility] Hospitalist Admission and Anticipated Discharge Date Admission Date: May 11, 2020 Subjective 55 yo F with recent COVID infection and worsening dyspnea with chest pain, found to have bilateral PE Patient reports persistent chest pain that was even more severe overnight requiring Dilaudid 2 times. She is concerned and anxious. She does report some shortness of breath although is not hypoxic. She is hemodynamically stable. She has been on heparin for over 48 hours. +constipation cough is still present and persistent, dry afebrile tolerating PO Review of Systems Review of Systems: All systems reviewed & are unremarkable except as noted in Subjective Physical Exam Physical Exam: CONSTITUTIONAL: WNWD, vitals as above, generally well- appearing EYES: normal conjunctivae, no scleral icterus ENT: external ear and nose normal, MMM RESPIRATORY: clear to auscultation bilaterally, no crackles, rales or wheezes, normal respiratory effort. Coughing is less frequent but present, dry. CARDIOVASCULAR: regular rate and rhythm, S1 and 2 heard without murmurs, gallops or rubs, no JVD, no peripheral edema GASTROINTESTINAL: soft, nontender, no guarding MUSCULOSKELETAL: strength 5/5 throughout, head is normocephalic and atraumatic SKIN: warm and dry NEUROLOGIC: CN 2-12 grossly intact, no sensory deficit, normal cognition, normal speech, no gross focal deficits. PSYCHIATRIC: alert cooperative and oriented to person, place and time. Results & Data Results & Data ([facility]) Vital Signs (Past 12 Hours) Vital Signs Temp Pulse Pulse Resp BP Pulse Ox 05/13/20 15:28 59 L 05/13/20 15:25 37.3 C 58 L 17 118/79 97 05/13/20 13:47 61 18 93 05/13/20 11:37 37.2 C 54 L 18 141/84 H 97 05/13/20 08:00 58 L 70 18 94 05/13/20 07:12 36.7 C 58 L 19 129/80 96 Medications Administered Current Inpatient Medications Acetaminophen (Acetaminophen 325 Mg Tab) 650 mg PO Q4H PRN PRN Reason: Pain or Fever Stop: 06/10/20 18:19 Albuterol (Albuterol Hfa 8 Gm Inhaler) 2 puffs INH QID PRN PRN Reason: Shortness Of Breath Or Wheezin Stop: 06/10/20 18:19 Albuterol (Albuterol 0.083% Nebu Soln 3 Ml Vial) 2.5 mg NEB Q6R PRN PRN Reason: SOB/wheezing Stop: 06/11/20 12:59 Guaifenesin/Codeine Phosphate (Guaifenesin/Codeine 200mg/20mg 10ml Udc) 10 ml PO Q6H PRN PRN Reason: Cough Stop: 06/10/20 19:51 Last Admin: 05/13/20 09:06 Dose: 10 ml Documented by: Hydromorphone HCl (Hydromorphone Inj 0.5 Mg/0.5 Ml Syr) 0.5 mg IV Q6H PRN PRN Reason: Moderate Pain Stop: 05/25/20 19:19 Last Admin: 05/13/20 16:24 Dose: 0.5 mg Documented by: Heparin Sodium/Dextrose (Heparin Sodium/Dextrose) 25,000 units in 500 mls @ 22 mls/hr IV .[id number] [facility]; Protocol Stop: 06/10/20 15:14 Last Admin: 05/13/20 14:58 Dose: 1,100 units/hr, 22 mls/hr Documented by: Lamotrigine (Lamotrigine 25 Mg Tab) 75 mg PO BID [facility] Stop: 06/10/20 20:59 Last Admin: 05/13/20 08:05 Dose: 75 mg Documented by: Lamotrigine (Lamotrigine 25 Mg Tab) 50 mg PO DAILY@1400 [facility] Stop: 06/10/20 18:19 Last Admin: 05/13/20 13:54 Dose: 50 mg Documented by: Magnesium Citrate (Magnesium Citrate 296 Ml/Btl) 148 ml PO UD PRN PRN Reason: constipation Stop: 06/12/20 16:12 Multivitamins/Minerals (Cerovite Adv Formula Tab) 1 tab PO DAILY [facility] Stop: 06/11/20 08:59 Last Admin: 05/13/20 08:06 Dose: 1 tab Documented by: Ondansetron HCl (Ondansetron Inj 2 Mg/Ml 2 Ml Vial) 4 mg IV Q6H PRN PRN Reason: Nausea Stop: 06/10/20 18:19 Oxycodone/Acetaminophen (Oxycodone/Acetaminophen 5mg/325mg Tab) 1 - 2 tab PO Q4H PRN PRN Reason: Pain Stop: 05/26/20 10:30 Last Admin: 05/13/20 14:52 Dose: 2 tab Documented by: Polyethylene Glycol (Polyethylene (Miralax) 17 Gm Pack) 17 gm PO DAILY PRN PRN Reason: Constipation Stop: 06/10/20 18:19 Prednisone (Prednisone 5 Mg Tab) 5 mg PO DAILY [facility] Stop: 06/12/20 08:59 Last Admin: 05/13/20 08:05 Dose: 5 mg Documented by: Pregabalin (Pregabalin 150 Mg Cap) 150 mg PO TID [facility] Stop: 06/10/20 20:59 Last Admin: 05/13/20 13:53 Dose: 150 mg Documented by: Sennosides (Senna 8.6 Mg Tab) 8.6 mg PO TID [facility] Stop: 06/11/20 13:59 Last Admin: 05/13/20 13:54 Dose: Not Given Documented by:
--- NOTE | 2020-05-14 05:42 | Electrocardiogram Report ---
Test Reason : Blood Pressure : / mmHG Vent. Rate : 063 BPM Atrial Rate : 063 BPM P-R Int : 172 ms QRS Dur : 090 ms QT Int : 414 ms P-R-T Axes : 022 -01 009 degrees QTc Int : 423 ms Sinus rhythm with occasional Premature ventricular complexes Minimal voltage criteria for LVH, may be normal variant Borderline ECG When compared with ECG of 11-MAY-2020 15:02, No significant change was found Confirmed by Zac Elmore ([id number]) on 05/14/2020 5:41:42 AM Referred By: REFERRED SELF Confirmed By:Zac Elmore
[2020-05-14 05:56] LABS: Hematocrit (blood only) 41.3 % (37-47); Hemoglobin 13.9 g/dL (12.0-16.0); Mean Corpuscular Hemoglobin 30.9 pg (25-34); Mean Corpuscular Hgb Conc 33.7 g/dL (32-36); Mean Corpuscular Volume 91.8 fL (80-100); Mean Platelet Volume 9.6 fL (7.4-10.4); Platelet Count 219 K/uL (130-400); RDW Coefficient of Variation 12.4 % (11.5-14.5); RDW Standard Deviation 41.9 fL (36.4-46.3); White Blood Count 4.89 K/uL (4.8-10.8)
[2020-05-14 06:18] LABS: Partial Thromboplastin Ratio 2.1
[2020-05-14 06:59] LABS: Basophils # (auto) 0.01 K/uL (0-0.2); Basophils % (auto) 0.2 %; Eosinophils # (auto) 0.26 K/uL (0-0.5); Eosinophils % (auto) 5.3 %; Immature Granulocytes # (auto) 0.01 K/uL (0.00-0.02); Immature Granulocytes % (auto) 0.2 %; Lymphocytes # (auto) 2.95 K/uL (1.2-3.4); Lymphocytes % (auto) 60.3 %; Monocytes # (auto) 0.33 K/uL (0.11-0.59); Monocytes % (auto) 6.7 %; Neutrophils # (auto) 1.33 K/uL (1.4-6.5); Neutrophils % (auto) 27.3 %
[2020-05-14 07:03] LABS: Partial Thromboplastin Time 55.7 Seconds (21.0-31.0)
[2020-05-14] MEDS: oxyCODONE/ACETAMINOPHEN 5mg/325mg TAB PO PRN ×4 (08:18→22:24)
[2020-05-14] MEDS: lamoTRIgine 25 MG TAB PO SCH ×3 (08:19→20:31)
[2020-05-14] MEDS: SENNA 8.6 MG TAB PO SCH ×3 (08:19→20:31)
[2020-05-14] MEDS: predniSONE 5 MG TAB PO SCH (08:20)
[2020-05-14] MEDS: CEROVITE ADV FORMULA TAB PO SCH (08:20)
[2020-05-14] MEDS: PREGABALIN 150 MG CAP PO SCH ×3 (08:25→20:35)
[2020-05-14] MEDS ORDERED: predniSONE 10 MG TABLET PO SCH (09:00)
--- NOTE | 2020-05-14 14:01 | Pulmonary Consultation ---
Date of Consultation May 14, 2020 Assessment & Plan (1) Bilateral pulmonary embolism: 55-year-old female with past medical history of psoriatic arthritis on biologic therapy presenting with bilateral pulmonary emboli after recently being diagnosed with COVID-19 infection last month. The patient can be transitioned to a direct oral anticoagulant. I would recommend 6 months of therapy with anticoagulation. I do not see a role for prednisone at this time and she does not appear to have an asthma exacerbation or hypoxia related to Covid. She is roughly 1 month out of having COVID-19 and there are minimal groundglass opacities noted. She had several questions regarding flying and traveling to [place]. She also had questions with regards to skiing. I indicated to her that she should avoid flying for the next 4 weeks and avoid high altitude situations due to the decreased partial pressure of oxygen at high altitudes. Pain control of her pleuritic chest pain per hospitalist service. The patient's questions were answered to her satisfaction. Thank you for allowing us to participate in the care of this patient. At this time, pulmonary will sign off. Please call with questions. (2) Pneumonia due to COVID-19 virus: (3) Pleuritic chest pain: History of Present Illness Reason for Consultation: Pulmonary embolism in a patient who recently had COVID- 19 infection Requesting Physician: Hospitalist service Attending Physician: Mayra Hawkins MD History of Present Illness 55-year-old female with a past medical history of psoriatic arthritis on biologic therapy, fibromyalgia, GERD and asthma currently on albuterol inhalers and nebulizers presenting to the hospital due to ongoing shortness of breath and chest tightness. On exam of the patient today, she was very tearful and complaining of pain with deep inspiration. She feels that her pain is currently a 9 out of 10 and goes across the middle of her chest. She was diagnosed with Covid 19 on 04/22/2020 and initially when diagnosed with Covid, she is very fatigued and short of breath. This was slowly recovering and then over the last 2 to 3 days he started developing tightness in her chest as noted above. She denies any previous history of pulmonary emboli. She is currently on control which she takes on an as-needed basis for hot flashes. He denies any history of tobacco abuse. 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 She has 3 dogs, 2 cats and 2 birds. She has been around birds her entire life. Patient notes that she was very active prior to COVID-19 infection. She was lifting weights 3 times a week and using a [place] exercise bike at home. A chest CTA was performed during her initial presentation to the hospital and demonstrated predominantly right upper lobe mild groundglass opacities and lingular groundglass opacities. Also noted were bilateral pulmonary emboli in the right lower lobe and left lower lobe. Lower extremity Doppler was negative. She is currently on a heparin drip. Allergies Allergy/AdvReac Type Severity Reaction Status Date / Time RAO-2 INHIBITORS Allergy Unknown "MENTALLY Uncoded 05/11/20 15:37 [facility]" Home Medications Medication Instructions Recorded Confirmed Type lamotrigine 25 mg tablet 75 mg PO [facility] 11/25/18 05/11/20 History multivitamin with iron 1 tab PO DAILY 11/25/18 05/11/20 History albuterol sulfate 2 puff INHALATION QID PRN 05/11/20 05/11/20 History azithromycin [Zithromax Z-Reagan] 250 mg PO .DAILY UD 05/11/20 05/11/20 History infliximab-dyyb [Inflectra] 400 mg IV DIRECTED 05/11/20 05/11/20 History lamotrigine 50 mg PO .QAFTERNOON 05/11/20 05/11/20 History levocetirizine 5 mg PO DAILY PRN 05/11/20 05/11/20 History norethindrone-ethin estradiol 1 tab PO DAILY 05/11/20 05/11/20 History [Nortrel (28)] potassium 75 mg PO DAILY 05/11/20 05/11/20 History prednisone 10 mg PO .TAPER UD 05/11/20 05/11/20 History pregabalin [Lyrica] 150 mg PO TID 05/11/20 05/11/20 History propranolol 10 mg PO BID PRN 05/11/20 05/11/20 History tramadol 50 mg PO Q6H PRN 05/11/20 05/11/20 History Patient History Medical History Fibromyalgia GERD (gastroesophageal reflux disease) Ovarian cyst Psoriatic arthritis Vulvar dystrophy Surgical History H/O colonoscopy H/O foot surgery H/O oral surgery H/O wrist surgery History of colposcopy Family History Father Prostate cancer Skin cancer Denies family history of Ovarian cancer Breast cancer Colorectal cancer Social History Smoking Status: Never smoker Second Hand Exposure: No; Do You Dip or Chew Tobacco: No; Tobacco Cessation Education Requested by Patient: No Hx Alcohol Use: Yes Alcohol type: wine Alcohol Intake Frequency: 2-4 x/Month Hx Substance Use: No Preferred Language: Arabic Communication Ability: Effective Plant Health Care Technician Required: No Beliefs That Will Affect Care: None Current Living Situation: Spouse Other Information That Helps Us Care for You: No Feels Safe at Home: Yes Safety Concerns: Feels Safe At This Time Assistive Devices: Glasses Review of Systems Review of Systems: All systems reviewed & are unremarkable except as noted in HPI & below Physical Exam Constitutional: WD/WN, vitals as above Eyes: PERRL, conjunctivae normal, anicteric sclerae ENMT: external ear and nose normal, oropharynx normal Neck: normal visual inspection Respiratory: normal respiratory effort, lungs clear to auscultation Cardiovascular: RRR, no murmur, no edema Gastrointestinal (Abdomen): normal bowel sounds, soft, nontender, no hepatosplenomegaly Musculoskeletal: no cyanosis or clubbing, extremities motor strength 5/5 Skin: no rashes, warm and dry Neurologic: PERRL, EOMI, accommodation nl, no face palsy, no dysarthria Psychiatric: Orientation: alert and oriented x 3 Mood: + depressed mood and + anxious mood Results & Data Results & Data ([facility]) Vital Signs (Past 12 Hours) Vital Signs Temp Pulse Resp BP Pulse Ox 05/14/20 11:41 97.7 F 58 L 19 121/75 96 05/14/20 07:48 98.1 F 64 18 110/77 95 05/14/20 03:29 97.5 F L 63 18 95/60 L 93 I reviewed the vital signs, labs and imaging. PG Care Time/CCT Total # of Minutes Spent Total Time Spent with Patient: Total time spent is greater than 50% in coordinat ion of care (as documented) at patient's floor/unit and/or counseling patient: Coding Level of Care Code 77395 Inpt Consult Level 4 Diagnoses Bilateral pulmonary embolism I26.99 Pneumonia due to COVID-19 virus U07.1; J12.82 Pleuritic chest pain R07.81
--- NOTE | 2020-05-14 14:06 | Hospitalist Progress Note ---
Date of Service May 14, 2020 Assessment & Plan (1) Bilateral pulmonary embolism: In the setting of Covid/OCP use. Will transition to [facility] today. No evidence of DVT. Dilaudid/oxycodone for impaired control along with Tylenol as needed. Patient had pulmonary medicine input. Primary complaint is pain control. Otherwise on room air. Hemodynamically she is doing fine. Prefers to stay for 1 more day. (2) Pneumonia due to COVID-19 virus: COVID 19 Pneumonia diagnosed 04/22/20. Procalcitonin was not concerning. Medication for antibiotics at this time. Patient is on 5 mg of prednisone therapy for psoriatic arthritis. We will continue with taper. (3) Psoriatic arthritis: Follows with rheumatology Dr Ramos [facility] [place]. On Inflectra infusion last dose 04/09/2020. Due for infusion on Thursday, however, this is not on formulary and cannot be accommodated. She is aware and will reschedule with her outpatient clinic. (4) Fibromyalgia: Continue Lyrica and Lamictal. Of note Lamictal is a medication that was started when she was a medical patient in [facility] and was continued upon her transition of care to the [facility]. (5) Perimenopause: OCPs have been discontinued in the setting of pulmonary embolism. (6) Chronic constipation: Did have bowel movement yesterday. (7) DVT prophylaxis: Full Code Dispo-to home when medically stable and symptoms improve, likely in the next 1 to 2 days. Admission and Anticipated Discharge Date Admission Date: May 11, 2020 Subjective Overall she is doing okay. However, her primary complaint is bilateral subcostal pain. Reports breathing is improved. Continues to have minimal cough. Pain is 6 out of 10 on the pain scale. States Dilaudid seems to be more effective than oxycodone. Denies any abdominal pain, diarrhea or dysuria. Rest of the review of system is negative. Review of Systems Review of Systems: All systems reviewed & are unremarkable except as noted in HPI & below Physical Exam Physical Exam: General: A&Ox3 HENT: NCAT, MMM, EOMI Eyes: PERRLA Neck: Supple, normal range of motion CVS: normal rate and rhythm Resp: b/l decreased breath sounds Abdomen: Soft, nondistended nontender Extremities: Absence of any edema Neuro: face symmetric, strength grossly equal, no focal deficit Skin: warm and dry, no rashes/lesions/errythema MSK: normal ROM, no joint swelling/erythema Results & Data Results & Data ([facility]) Vital Signs (Past 12 Hours) Vital Signs Temp Pulse Resp BP Pulse Ox 05/14/20 11:41 36.5 C 58 L 19 121/75 96 05/14/20 07:48 36.7 C 64 18 110/77 95 05/14/20 03:29 36.4 C L 63 18 95/60 L 93
[2020-05-14] MEDS: APIXABAN 5 MG TABLET PO SCH ×2 (15:44→23:43)
[2020-05-14] MEDS: HEPARIN SODIUM/DEXTROSE 25,000 UNITS/500 ML BAG IV SCH (16:41)
[2020-05-14] MEDS ORDERED: APIXABAN 5 MG TABLET PO SCH (21:00)
[2020-05-15] MEDS: oxyCODONE/ACETAMINOPHEN 5mg/325mg TAB PO PRN ×2 (07:02→12:29)
[2020-05-15] MEDS: APIXABAN 5 MG TABLET PO SCH (08:41)
[2020-05-15] MEDS: lamoTRIgine 25 MG TAB PO SCH (08:42)
[2020-05-15] MEDS: CEROVITE ADV FORMULA TAB PO SCH (08:42)
[2020-05-15] MEDS: predniSONE 5 MG TAB PO SCH (08:42)
[2020-05-15] MEDS: SENNA 8.6 MG TAB PO SCH (08:42)
[2020-05-15] MEDS: PREGABALIN 150 MG CAP PO SCH (08:46)
--- NOTE | 2020-05-15 12:00 | Discharge Summary ---
Date of Service May 15, 2020 Admission HPI Per Admitting Provider Pt is 55 y/o F with PMH asthma, psoriatic arthritis, fibromyalgia, GERD presented to ER for SOB and abnormal CT Chest. Pt was diagnosed with COVID19 on 04/22/2020 with symptoms starting on 04/16. Had cough, SOB, myalgias, congestion, VELEZ, nausea, fatigue. Developed chest tightness and lungs hurting". Unable to fully inhale. Symptoms have not improved. Seen at urgent care on 05/08/2020 had unremarkable CXR and was started on Zithromax, prednisone taper and was instructed to use albuterol inhaler. 05/09/20 CBC without leukocytosis and had elevated D-dimer. Today had CTA chest and was positive for multiple lobar and segmental pulmonary emboli and was referred to ER. Has chronic pain but feels more fatigued than baseline. Denies fever/chills, diaphoresis, N/V/D, VELEZ, dizziness, syncope, vision changes, neck pain, hemoptysis, palpitations, abdominal pain, paresthesias, extremity weakness, extremity edema or erythema, rashes, urinary symptoms. Admission Exam Per Admitting Provider General: no distress, WDWN Head: normocephalic, atraumatic Eyes: PERRL, EOM's intact, conjunctiva non-injected, anicteric ENT: normal inspection external ears, nose, mucous membranes moist Neck: supple, trachea midline Lungs: diminished throughout, no respiratory distress, oxygen sats 94% on RA, no wheezing/rhonchi/rales noted CV: RRR, no murmur, no pretibial edema Abd: normal BS, soft, non-tender Ext: no cyanosis, no erythema or edema, no calf tenderness Neuro: A&O x 3, no focal deficits noted, normal affect Skin: warm, dry Principal Diagnosis Pulmonary embolism Discharge Exam General: A&Ox3 HENT: NCAT, MMM, EOMI Eyes: PERRLA Neck: Supple, normal range of motion CVS: normal rate and rhythm Resp: b/l decreased breath sounds Abdomen: Soft, nondistended nontender Extremities: Absence of any edema Neuro: face symmetric, strength grossly equal, no focal deficit Skin: warm and dry, no rashes/lesions/errythema MSK: normal ROM, no joint swelling/erythema Discharge Data Allergies Allergy/AdvReac Type Severity Reaction Status Date / Time RAO-2 INHIBITORS Allergy Unknown "MENTALLY Uncoded 05/11/20 15:37 HEALTH CHALLENGE" Consultations 05/11/20 15:02 ED Decision to Admit Stat 05/13/20 16:11 Consult Pulmonology Routine Ordered Studies 05/11/20 18:20 US venous doppler LE BI Routine 05/11/20 21:24 CT head/brain wo con Urgent Hospital Course (1) Bilateral pulmonary embolism: In the setting of Covid/OCP use. No evidence of DVT. Patient was initially started on heparin later transitioned to Eliquis. On the day of discharge patient was doing okay. Hemodynamically she was doing fine. Patient was on room air. Patient was discharged in stable condition. (2) Pneumonia due to COVID-19 virus: COVID 19 Pneumonia diagnosed 04/22/20. Procalcitonin was not concerning. Medication for antibiotics at this time. Patient was discharged with 2.5 mg daily taper for 3 more days. (3) Psoriatic arthritis: Follows with rheumatology Dr Ramos [facility] [place]. On Inflectra infusion last dose 04/09/2020. Due for infusion on Thursday, however, this is not on formulary and cannot be accommodated. She is aware and will reschedule with her outpatient clinic. (4) Fibromyalgia: Continue Lyrica and Lamictal. Of note Lamictal is a medication that was started when she was a medical patient in [facility] and was continued upon her transition of care to the [facility]. (5) Perimenopause: OCPs have been discontinued in the setting of pulmonary embolism. (6) Chronic constipation: resolved Total Time Total Time Spent Total Time Spent (In Minutes): 35 Discharge Plan Discharge Items Patient Disposition: Home - Home Health Services Reason For Visit: PE, COVID PNA Discharge Diagnosis: Pulmonary embolism Activity: Resume your previous activity Non-emergency contact: Primary Care Provider Call non-emergency contact if: your symptoms worsen Follow-up/Referrals: Fredi Day DO [Primary Care Provider] - (Date & Time 05/21/2020 3:00 PM Provider Kennedi Saravia PA-C Department [facility] ) Diet: Regular Addtl Attending Provider Instructions: Follow-up with your primary care physician within 1 week. Take Eliquis 10 mg twice daily for 6 more days followed by 5 mg twice daily. Continue to wean off the prednisone. Pending Studies at Discharge: No Stand-Alone Forms: My [facility], Smoking Cessation Medications and DC Order Prescriptions: New prednisone 5 mg Tablet 2.5 mg PO DAILY Qty: 3 RF: 0 oxycodone-acetaminophen [Percocet] 5-325 mg Tablet 1 - 2 tab PO Q4H PRN (Reason: pain) Qty: 14 RF: 0 Eliquis 5 mg Tablet 5 mg PO BID Qty: 60 RF: 0 Continued lamotrigine [Lamictal] 25 mg tablet 75 mg PO AMHS RF: 0 multivitamin with iron [Daily Multiple Vitamins/Iron] tablet 1 tab PO DAILY RF: 0 tramadol 50 mg tablet 50 mg PO Q6H PRN (Reason: Pain) RF: 0 lamotrigine 25 mg tablet 50 mg PO .QAFTERNOON RF: 0 pregabalin [Lyrica] 150 mg capsule 150 mg PO TID RF: 0 levocetirizine 5 mg tablet 5 mg PO DAILY PRN (Reason: ALLERGIES) RF: 0 albuterol sulfate 90 mcg/actuation Hfa Aerosol Inhaler 2 puff INHALATION QID PRN (Reason: Shortness Of Breath Or Wheezing) RF: 0 Inflectra 100 mg Recon Soln 400 mg IV DIRECTED RF: 0 Discontinued prednisone 10 mg tablet 10 mg PO .TAPER UD RF: 0 propranolol 10 mg Tablet 10 mg PO BID PRN (Reason: PERFORMANCE ANXIETY) RF: 0 Nortrel 1/35 (28) 1-35 mg-mcg tablet 1 tab PO DAILY RF: 0 azithromycin [Zithromax Z-Reagan] 250 mg tablet 250 mg PO .DAILY UD RF: 0 potassium 75 mg Tablet 75 mg PO DAILY RF: 0 Discharge Orders: Discharge Order (Routine); Ordered 05/15/20 Ordered By: Mayra Damon/Other Patient Handouts: Embolism Pulmonary Dc, Apixaban oral tablets Admission Data Admit Date/Time: 05/11/20 15:47 Attending Provider: Mayra Hawkins Admit Provider: Lena Yadav Primary Care Provider: Fredi Day Other Providers: Lena Yadav ; Benji Sagastume Other Interventions: Discharge Summary Assessment (RN) Last Done: 05/15/20 11:18
== END 2020-05-15 13:15 | disposition home health service (06) | DRG 177 ==
LOC: ED 13:10 → 2S 15:47 → SUATTDRO 15:47 → 2S 17:43